=== PATIENT | male | born 1945 | race Caucasian/White ===

== ENCOUNTER 2019-02-02 15:27 | Observation (INO) | payer MEDICARE ==
[~2019-02-02] VITALS: Ht 175.3 cm; Wt 96.3 kg
--- NOTE | 2019-02-02 16:42 | REP ---
RIGHT LOWER EXTREMITY DUPLEX DOPPLER VENOUS ULTRASOUND: Real-time compression and duplex Doppler interrogation of the right lower extremity deep venous systems is performed. Right common femoral vein is fully compressible with transducer pressure and demonstrates no intraluminal thrombus. There is non-occlusive thrombus in the distal superficial femoral vein and in the popliteal vein. IMPRESSION: Non-occlusive thrombus in the distal right superficial femoral vein and adjacent popliteal vein. Electronically Signed by Ken Moore MD 02/02/2019 06:43 P
[2019-02-02] MEDS ORDERED: LISI10TA4 PO (17:32)
[2019-02-02] MEDS ORDERED: CHOL100029 PO (17:32)
[2019-02-02] MEDS ORDERED: COUM10TA PO (17:32)
[2019-02-02] MEDS ORDERED: FISH1000 PO (17:32)
[2019-02-02] MEDS ORDERED: ASPI81TA21 PO (17:32)
[2019-02-02 18:21] LABS: INR 3.04; PROTHROMBIN TIME 31.4 SECONDS (11.8-14.0)
[2019-02-02 18:22] LABS: PARTIAL THROMBOPLASTIN TIME 34.4 SECONDS (25.0-38.4)
[2019-02-02 18:24] LABS: HEMATOCRIT 38.4 % (42.0-52.0); HEMOGLOBIN 12.6 g/dl (13.5-17.5); MEAN CORPUSCULAR HEMOGLOBIN 33.1 pg (27.0-33.0); MEAN CORPUSCULAR HGB CONC 32.8 g/dl (32.0-36.5); MEAN CORPUSCULAR VOLUME 100.8 fl (80.0-96.0); PLATELET COUNT, AUTOMATED 125 10^3/uL (150-450); RED BLOOD COUNT 3.81 10^6/uL (4.30-6.10)
[2019-02-02 18:28] LABS: ALT/SGPT 29 U/L (12-78); BILIRUBIN,DIRECT < 0.1 MG/DL (0.0-0.2); BILIRUBIN,TOTAL 0.4 MG/DL (0.2-1.0); TOTAL PROTEIN 6.5 GM/DL (6.4-8.2)
[2019-02-02 19:09] LABS: ATYPICAL LYMPH 6 % (0-5); EOSINOPHILS 3 % (0-3); LYMPHOCYTES 64 % (16-44); METAMYELOCYTES 1 % (0-0); MONOCYTES 1 % (0-5); NEUTROPHILS 25 % (28-66); PLATELET ESTIMATE DECREASED (NORMAL)
[2019-02-02 19:10] LABS: SMUDGE CELLS 3+
[2019-02-02 19:11] LABS: WHITE BLOOD COUNT 40.7 10^3/uL (4.0-10.0)
[2019-02-02] MEDS ORDERED: MAALOX 30 ML SUSP *UDC PO PRN (21:45)
[2019-02-02] MEDS ORDERED: MOM 30ML SUSPENSION UDC PO PRN (21:45)
[2019-02-02] MEDS ORDERED: ACETAMINOPHEN TAB 650MG DOSE (2X325MG) PO PRN (21:45)
--- NOTE | 2019-02-02 21:51 | HPEPDOC ---
General Date of Admission 02/02/19 Date of Service: Feb 02, 2019 Primary Care Physician: EM BROWNLEE Chief Complaint The patient is a 73-year-old male admitted with a reason for visit of Leg Injury. Source: Patient Exam Limitations: No limitations Timing/Duration: Day(s) Severity: Mild Associated Symptoms: Other History of Present Illness 73 years old white male with past medical history of CLL, history of pulmonary embolus and DVT on Coumadin with therapeutic INR and a piece of furniture fell on his right lower leg on Thursday unit x-ray done at urgent care, which was essentially negative for any fractures, but he has bluish discoloration of his right foot and ankle. It felt warm and swelling and was told by his doctor was at [place] to come to emergency room to rule out DVT. Patient does not offer any complaints. As per patient, even the pain is gone except the bluish discoloration and bruising of his right foot and ankle. We will called in to admit patient for possible consultation for IVC filter placement in a.m. Home Medications Scheduled Aspirin (Aspir-Low) 81 Mg Tablet.dr, 81 MG PO DAILY, (Reported) with food Lisinopril (Lisinopril) 10 Mg Tablet, 10 MG PO DAILY, (Reported) [place]-3 Fatty Acids/Fish Oil (Fish Oil 1,000 mg Capsule) 1 Each Capsule, 2 CAP PO DAILY, (Reported) Vitamin D (Vitamin D3) 1,000 Unit Tablet, 3,000 TAB PO DAILY, (Reported) Warfarin Sodium (Coumadin) 10 Mg Tablet, 10 MG PO DAILY, (Reported) Allergies Coded Allergies: apixaban (Verified Allergy, Intermediate, HIVES, 02/02/19) rivaroxaban (Verified Allergy, Intermediate, HIVES, 02/02/19) Oijujzn-Oqo-Hls Reductase Inhibitor (Verified Adverse Reaction, Intermediate, MUSCLE WEAKNESS, 02/02/19) Past Medical History Medical History CLL, hypertension, bones on both hands Surgical History Skin grafts for rosario Family History Significant Family History: No pertinent family hx Social History * Smoker: Denies Alcohol: Denies Drugs: denies A-FIB/CHADSVASC A-FIB History Current/History of A-Fib/PAF?: No Review of Systems Constitutional: Denies: Chills, Fever, Malaise, Night Sweats, Weakness, Fatigue, Weight Loss, Lethargy, Other Eyes: Denies: Pain, Vision change, Conjunctivae inflammation, Eyelid inflammation, Redness, Other ENT: Denies: Head Aches, Ear Pain, Dysphagia, Sinus Congestion, Post Nasal Drip, Sore Throat, Epistaxis, Other Symptoms Skin: Denies: Rash, Lesions, Jaundice, Bruising, Itching, Dry, Breakdown, Nail Changes, Other Pulmonary: Denies: Dyspnea, Cough, Pleuritic Chest Pain, Other Symptoms Cardiovascular: Denies: Chest Pain, Palpitations, Orthopnea, Paroxysmal Noc. Dyspnea, Edema, Lt Headedness, Other Symptoms Gastrointestinal: Denies: Nausea, Vomiting, Abdominal Pain, Diarrhea, Constipation, Melena, Hematochezia, Other Symptoms Genitourinary: Denies: Dysuria, Frequency, Incontinence, Hematuria, Retention, Other Symptoms Hematologic: Denies: Bruising, Bleeding Excessively, Petecchia, Purpura, Enlarged Lymph Nodes, Other Hematologic Endocrine: Denies: Polydipsia, Polyphagia, Polyuria, Heat Intolerance, Cold Intolerance, Other Endocrine Sx Musculoskeletal: Reports: Other Symptoms (bluish discoloration of right foot an d ankle) Neurological: Denies: Weakness, Numbness, Incoordination, Change in speech, Confusion, Seizures, Other Symptoms Psych: Denies: Mood Normal, Anxiety, Depression, Memory Issues, Thoughts of Self Harm, Anger, Thoughts of Harming Other, Other Psych Physical Examination General Exam: Positive: Alert, Cooperative Eye Exam: Positive: PERRLA, Conjunctiva & lids normal ENT Exam: Positive: Mucous membr. moist/pink Neck Exam: Positive: Supple, JVD Chest Exam: Positive: Clear to auscultation, Normal air movement Heart Exam: Positive: Rate Normal, Normal S1, Normal S2 Abdomen Exam: Positive: Normal bowel sounds, Soft Extremity Exam: Positive: Other (mild swelling and bluish discoloration bruising of the right ankle and right foot) Skin Exam: Positive: Other skin issue Neuro Exam: Positive: Strength at 5/5 X4 ext, Cranial Nerves 3-12 NL Psych Exam: Positive: Mental status NL, Mood NL, Oriented x 3 Vital Signs Vital Signs Date Time Temp Pulse Resp B/P (MAP) Pulse Ox O2 Delivery O2 Flow Rate FiO2 02/02/19 20:45 73 180/97 (124) 96 02/02/19 15:28 99.7 16 Room Air Laboratory Data Labs 24H Laboratory Tests 2 02/02/19 16:45: Bedside Prothrombin Time INR 3.2, Prothrombin Time (MISC) 36.7H 02/02/19 16:50: White Blood Count 40.7*H, Red Blood Count 3.81L, Hemoglobin 12.6L, Hematocrit 38.4L, Mean Corpuscular Volume 100.8H, Mean Corpuscular Hemoglobin 33.1H, Mean Corpuscular Hemoglobin Concent 32.8, Red Cell Distribution Width 13.1, Platelet Count 125L, Lymphocytes # (Auto) , Monocytes # (Auto) , Nucleated Red Blood Cells % (auto) 0.1H, Neutrophils 25L, Lymphocytes (Manual) 64H, Monocytes (Manual) 1, Eosinophils (Manual) 3, Metamyelocytes 1H, Atypical Lymphocytes 6H, Smudge Cells 3+, Platelet Estimate DECREASED, Macrocytosis 1+, Prothrombin Time 31.4H, Prothromb Time International Ratio 3.04, Activated Partial Thromboplast Time 34.4, POC Glucose (Misc Panel) 94, POC Sodium (Misc Panel) 141, POC Potassium (Misc Panel) 4.2, POC Chloride (Misc Panel) 106, POC Total CO2 (Misc Panel) 27.0, POC Blood Urea Nitrogen (Misc Panel 28H, POC Ionized Calcium (Misc Panel) 5.0, POC Creatinine (Misc Panel) 1.6H, POC Hematocrit (Misc Panel) 38.0, Aspartate Amino Transf (AST/SGOT) 21, Alanine Aminotransferase (ALT/SGPT) 29, Alkaline Phosphatase 36L, Total Bilirubin 0.4, Direct Bilirubin < 0.1, Total Protein 6.5, Albumin 4.0, Albumin/Globulin Ratio 1.60 02/02/19 20:10: CBC/BMP Laboratory Tests 02/02/19 16:50 Red Blood Count 3.81 L, Mean Corpuscular Volume 100.8 H, Mean Corpuscular Hemoglobin 33.1 H, Mean Corpuscular Hemoglobin Concent 32.8, Red Cell Distribution Width 13.1, Lymphocytes # (Auto) , Monocytes # (Auto) Assessment/Plan 73 years old white male with past medical history of CLL has a history of PE about 8-9 years ago and has been on Coumadin with therapeutic range. He unfortunately had an accident and sustained bruising of his right foot and ankle on Thursday, was told by his doctor to come to ED to rule out DVT. Venous Dopplers of his right lower extreme. He was done which showed nonobstructing thrombosis of her right superficial femoral vein. Patient hasn't been admitted to the hospital for possible intervention radiology consultation in a.m. to consider placing an IVC filter as patient is therapeutic and INR and he still has a clot in the right superficial femoral vein, which indicates failure of anticoagulation and to further prevent any episode of pulmonary embolus. He might require IVC filter. Admit patient to [facility] His INR is 3.0. I will skip today's Coumadin dose and will continue his Coumadin 10 mg by mouth daily from tomorrow again. if Dr Macias agrees with the placement of IVC filter, then patient can be started on heparin drip and INR can be reversed with vitamin K for the procedure . I will continue all his home medication. In the meantime Pt is clinically stable Problems (1) DVT (deep venous thrombosis) Status: Acute Problem Text: 73 years old white male with past medical history of CLL has a history of PE about 8-9 years ago and has been on Coumadin with therapeutic ra nge. He unfortunately had an accident and sustained bruising of his right foot and ankle on Thursday, was told by his doctor to come to ED to rule out DVT. Venous Dopplers of his right lower extreme. He was done which showed nonobstructing thrombosis of her right superficial femoral vein. Patient hasn't been admitted to the hospital for possible intervention radiology consultation in a.m. to consider placing an IVC filter as patient is therapeutic and INR and he still has a clot in the right superficial femoral vein, which indicates failure of anticoagulation and to further prevent any episode of pulmonary embolus. He might require IVC filter. Admit patient to [facility] floor His INR is 3.0. I will skip today's Coumadin dose and will continue his Coumadin 10 mg by mouth daily from tomorrow again. if Dr Macias agrees with the placement of IVC filter, then patient can be started on heparin drip and INR can be reversed with vitamin K for the procedure . I will continue all his home medication. In the meantime Pt is clinically stable (2) CLL (chronic lymphocytic leukemia) Status: Chronic Problem Text: Patient follow-ups with this oncologist, Dr. 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, so could not connect with him for further recommendations Patient will continue treatment with this oncologist as an outpatient Plan / VTE VTE Prophylaxis Ordered?: Yes NAVJOT HARTMAN MD Feb 02, 2019 21:51
[2019-02-02 23:17] VITALS: BP 157/86
[2019-02-02] MEDS: DOCUSATE SODIUM 100 MG CAP PO SCH (23:41)
[2019-02-03 06:00] VITALS: BP 149/83
[2019-02-03 06:25] LABS: INR 3.1; PROTHROMBIN TIME 31.9 SECONDS (11.8-14.0)
[2019-02-03] MEDS: ASPIRIN 81 MG ENTERIC TAB PO SCH (08:13)
[2019-02-03] MEDS: DOCUSATE SODIUM 100 MG CAP PO SCH ×2 (08:13→22:25)
[2019-02-03] MEDS: LISINOPRIL 10 MG TAB PO SCH (08:17)
[2019-02-03 08:36] LABS: HEMATOCRIT 38.6 % (42.0-52.0); HEMOGLOBIN 12.7 g/dl (13.5-17.5); MEAN CORPUSCULAR HEMOGLOBIN 32.9 pg (27.0-33.0); MEAN CORPUSCULAR HGB CONC 32.9 g/dl (32.0-36.5); PLATELET COUNT, AUTOMATED 118 10^3/uL (150-450); RED BLOOD COUNT 3.86 10^6/uL (4.30-6.10)
[2019-02-03 08:37] LABS: BLOOD UREA NITROGEN 21 MG/DL (7-18); CALCIUM LEVEL 8.9 MG/DL (8.8-10.2); CARBON DIOXIDE LEVEL 28 MEQ/L (21-32); CHLORIDE LEVEL 110 MEQ/L (98-107); CREATININE FOR GFR 1.21 MG/DL (0.70-1.30); GLOMERULAR FILTRATION RATE > 60.0 (>42); GLUCOSE, FASTING 101 MG/DL (70-100); POTASSIUM SERUM 4.8 MEQ/L (3.5-5.1); SODIUM LEVEL 143 MEQ/L (136-145)
[2019-02-03 08:39] LABS: WHITE BLOOD COUNT 39.3 10^3/uL (4.0-10.0)
[2019-02-03] MEDS ORDERED: PREVNAR 13 VACCINE SYRINGE (CPT CODE:90670) IM ONE (09:00)
[2019-02-03 14:00] VITALS: BP 128/69
[2019-02-03] MEDS ORDERED: WARFARIN SOD 5 MG TAB PO SCH (17:00)
--- NOTE | 2019-02-03 17:33 | IPNPDOC ---
Date Seen The patient was seen on 02/03/19. Progress Note 73 y/o M with past medical history of CLL, history of pulmonary embolus and DVT on Coumadin with therapeutic INR was admitted with right lower extremity DVT. Pt was supposed to be evaluated by IR for IVC filter placement today. Pt was seen and examined at bedside. Pt c/o mild right lower extremity pain around skin abrasion site. NO new complaint. OBJECTIVE PHYSICAL EXAMINATION: VITAL SIGNS: Please see below. GENERAL:comfortable, not in acute distress. HEENT: oral mucosa moist CARDIOVASCULAR: regular rate and rhythm, S1/S2 positive RESPIRATORY: clear to auscultation, no added sounds ABDOMINAL: soft, non tender, normal bowel sound EXTREMITIES: skin abrasion over right lower vigil, NEUROLOGICAL: No focal deficit PSYCHOLOGICAL: mood normal Labs and imaging studies reviewed. ASSESSMENT AND PLAN Right lower extremity DVT while on therapeutic anticoagulation will hold coumadin in view of supratherapeutic INR will consider vitamin K if INR is still elevated and heparin gtt during perioperative period for IVC filter placement. will f/u with IR for IVC placement. Obesity supportive care CLL stable o/p oncology f/u as scheduled HTN controlled with home meds. VS, I&O, 24H, Fishbone Vital Signs/I&O Vital Signs Date Time Temp Pulse Resp B/P (MAP) Pulse Ox O2 Delivery O2 Flow Rate FiO2 02/03/19 14:00 98.5 73 18 128/69 (88) 95 02/02/19 15:28 Room Air I&O- Last 24 Hours up to 6 AM 02/03/19 06:00 Intake Total 300 ml Output Total 250 ml Balance 50 ml Laboratory Data 24H LABS Laboratory Tests 2 02/02/19 20:10: 02/03/19 05:32: Nucleated Red Blood Cells % (auto) 0.0, Anion Gap 5L, Glomerular Filtration Rate > 60.0, Blood Urea Nitrogen 21H, Creatinine 1.21, Sodium Level 143, Potassium Level 4.8, Chloride Level 110H, Carbon Dioxide Level 28, Calcium Level 8.9 02/03/19 05:36: Prothrombin Time 31.9H, Prothromb Time International Ratio 3.10 CBC/BMP Laboratory Tests 02/03/19 05:32 Red Blood Count 3.86 L, Mean Corpuscular Volume 100.0 H, Mean Corpuscular Hemoglobin 32.9, Mean Corpuscular Hemoglobin Concent 32.9, Red Cell Distribution Width 12.9, Calcium Level 8.9 POLINA BATISTA MD Feb 03, 2019 17:33
[2019-02-03 22:00] VITALS: BP 133/72
[2019-02-03] MEDS: zolPIDEM TARTRATE 5 MG TAB PO PRN (22:24)
[2019-02-04 06:00] VITALS: BP 140/84
[2019-02-04 06:15] LABS: HEMATOCRIT 40.9 % (42.0-52.0); HEMOGLOBIN 13.5 g/dl (13.5-17.5); MEAN CORPUSCULAR HEMOGLOBIN 32.8 pg (27.0-33.0); MEAN CORPUSCULAR VOLUME 99.5 fl (80.0-96.0); PLATELET COUNT, AUTOMATED 136 10^3/uL (150-450); RED BLOOD COUNT 4.11 10^6/uL (4.30-6.10)
[2019-02-04 06:21] LABS: WHITE BLOOD COUNT 42.5 10^3/uL (4.0-10.0)
[2019-02-04 06:29] LABS: INR 2.78; PROTHROMBIN TIME 29.2 SECONDS (11.8-14.0)
[2019-02-04 06:36] LABS: BLOOD UREA NITROGEN 21 MG/DL (7-18); CREATININE FOR GFR 1.15 MG/DL (0.70-1.30); GLUCOSE, FASTING 96 MG/DL (70-100)
[2019-02-04 06:37] LABS: CARBON DIOXIDE LEVEL 28 MEQ/L (21-32); CHLORIDE LEVEL 109 MEQ/L (98-107); GLOMERULAR FILTRATION RATE > 60.0 (>42); POTASSIUM SERUM 4.8 MEQ/L (3.5-5.1); SODIUM LEVEL 141 MEQ/L (136-145)
[2019-02-04] MEDS: DOCUSATE SODIUM 100 MG CAP PO SCH ×2 (09:31→20:12)
[2019-02-04] MEDS: ASPIRIN 81 MG ENTERIC TAB PO SCH (09:31)
[2019-02-04] MEDS: LISINOPRIL 10 MG TAB PO SCH (09:33)
[2019-02-04 14:00] VITALS: BP 152/79
[2019-02-04] MEDS ORDERED: diphenhydrAMINE INJ 50MG/ML VIAL (J1200) As Ordered ONE (15:09)
[2019-02-04] MEDS ORDERED: fentaNYL 100 MCG/2 ML INJECTION (J3010) As Ordered ONE (15:10)
[2019-02-04] MEDS ORDERED: ISOVUE-300 61% 50ML VIAL (Q9967) As Ordered ONE (15:10)
[2019-02-04] MEDS ORDERED: MIDAZOLAM INJ 2 MG/2 ML VIAL (J2250) As Ordered ONE (15:10)
[2019-02-04] MEDS ORDERED: LIDOCAINE 1% MDV 20ML VIAL As Ordered ONE (15:10)
--- NOTE | 2019-02-04 15:40 | IRMSE ---
[facility] IR Moderate Sedation Eval. Date and Time Date: Feb 04, 2019 Time: 15:40 ASA Classification ASA Classification: II-Mild systemic disease Mallampati Score: I NPO: Yes Obstructive Sleep Apnea: Yes Interval Plan: moderate sedation FANTASMA FREGOSO MD Feb 04, 2019 15:40
--- NOTE | 2019-02-04 16:52 | REP ---
IR IVC filter placement. IR Venogram. IR moderate sedation. Ultrasound of the right groin. Clinical indication : Failed anticoagulation with new deep vein thrombosis on Coumadin. History of bilateral pulmonary emboli. Physician: Dr. Kennedy. Procedure: The patient was advised of the benefits, risks and alternatives of the procedure and informed consent was obtained. The time-out was performed with verification of the patient's name, MRN, site of procedure and type of procedure to be performed. The patient was positioned in the supine position on the angiographic table. The site was prepped and draped in the usual sterile fashion. Moderate sedation was performed by the physician including the presence of an independent trained observer that assisted in monitoring the patient's level of consciousness and physiologic status. Following administration of Fentanyl and Versed , the physician spent 45 minutes of continuous face to face time with the patient. Preliminary ultrasound of the right groin was performed and demonstrates a patent right common femoral vein which is easily compressible. The vein was accessed using a micropuncture kit, under ultrasound guidance. An 035 wire was placed into the peripheral inferior vena cava. An inferior vena cava venogram was then performed demonstrating a normal caliber inferior vena cava without filling defects and the renal vein inflow at the L1 level. No caval anomalies were identified. The wire was then passed into the inferior vena cava and the filter sheath advanced over the wire. A filter was then advanced through the sheath and positioned within the infrarenal inferior vena cava. The filter was then deployed in the usual fashion. Positioning was confirmed fluoroscopically. The sheath was then removed and hemostasis obtained with manual compression. The patient tolerated the procedure well and was returned to PRU in stable condition. EBL: Less than 5 ml. Complications: None. Conclusion: 1. Normal inferior vena cava venogram. 2. Successful deployment of a cook select filter in the infrarenal inferior vena cava. 3. Patient to return for filter retrieval when no longer needed. Follow up in IR clinic in 6 months. Thank you this referral. Electronically Signed by Valentina Kennedy MD 02/04/2019 04:50 P
--- NOTE | 2019-02-04 17:04 | IPNPDOC ---
Date Seen The patient was seen on 02/04/19. Progress Note SUBJECTIVE: 73-year-old male with past medical history of CLL, coagulation factor disorder (uncommon, followed at [facility]), DVT/PE (on Coumadin), hypertension, admitted for new right lower extremity DVT despite therapeutic INR on Coumadin. 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 Patient was admitted for IR evaluation regarding placement of IVC filter; patient is currently asymptomatic, reports right foot pain due to injury, denies right lower extremity numbness, tingling or weakness. Patient denies any shortness of breath, chest pain, nausea, vomiting, abdominal pain, diarrhea or constipation. 10 point review of system was negative except for above. OBJECTIVE PHYSICAL EXAMINATION: VITAL SIGNS: Please see below. GENERAL: No distress HEENT: Normocephalic, atraumatic, moist mucous membranes NECK: Supple CARDIOVASCULAR EXAMINATION: S1, S2, no murmurs RESPIRATORY EXAMINATION: Clear to auscultation, no wheezing ABDOMINAL EXAMINATION: Soft, nontender, nondistended, positive bowel sounds EXTREMITIES: Range of motion intact, bilateral lower extremities warm to touch, pulses intact. SKIN: No rash NEUROLOGICAL EXAMINATION: Alert and oriented 3, no focal deficits PSYCHIATRIC EXAMINATION: Calm and cooperative LABORATORY DATA, IMAGING STUDIES, MICROBIOLOGY: Please see below. 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 PROBLEMS: 1. Right Lower extremity DVT]: . History of malignancy, hypercoagulability, stasis, and injury. Difficult to call failure of Coumadin therapy due to recent travel and injury. Will switch to Lovenox. IR eval regarding IVC filter placement pending. 2. CLL: . Never required treatment. 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 3. Hypercoagulability: . Reports rare coagulation factor disorder, has blood work sent to [facility]. Continue Lovenox. 4. Hypertension. Continue home meds. VS, I&O, 24H, Fishbone Vital Signs/I&O Vital Signs Date Time Temp Pulse Resp B/P (MAP) Pulse Ox O2 Delivery O2 Flow Rate FiO2 02/04/19 16:30 76 16 99 02/04/19 16:25 2 02/04/19 15:05 98.0 02/04/19 14:00 152/79 (103) 02/02/19 15:28 Room Air I&O- Last 24 Hours up to 6 AM 02/04/19 05:59 Intake Total 1730 ml Output Total 900 ml Balance 830 ml Laboratory Data 24H LABS Laboratory Tests 2 02/04/19 05:16: Nucleated Red Blood Cells % (auto) 0.0, Prothrombin Time 29.2H, Prothromb Time International Ratio 2.78, Anion Gap 4L, Glomerular Filtration Rate > 60.0, Blood Urea Nitrogen 21H, Creatinine 1.15, Sodium Level 141, Potassium Level 4.8, Chloride Level 109H, Carbon Dioxide Level 28, Calcium Level 9.0 CBC/BMP Laboratory Tests 02/04/19 05:16 Red Blood Count 4.11 L, Mean Corpuscular Volume 99.5 H, Mean Corpuscular Hemoglobin 32.8, Mean Corpuscular Hemoglobin Concent 33.0, Red Cell Distribution Width 12.9, Calcium Level 9.0 JENNI LORENZO MD Feb 04, 2019 17:04
[2019-02-04 18:00] VITALS: BP 128/77
[2019-02-04] MEDS ORDERED: ENOXAPARIN 100MG/1ML SYRINGE (J1650) SC SCH (18:00)
[2019-02-04] MEDS: zolPIDEM TARTRATE 5 MG TAB PO PRN (20:12)
[2019-02-04 22:00] VITALS: BP 137/72
[2019-02-05 06:00] VITALS: BP 152/74
[2019-02-05 06:04] LABS: HEMATOCRIT 42.1 % (42.0-52.0); HEMOGLOBIN 13.8 g/dl (13.5-17.5); MEAN CORPUSCULAR HEMOGLOBIN 32.8 pg (27.0-33.0); MEAN CORPUSCULAR HGB CONC 32.8 g/dl (32.0-36.5); PLATELET COUNT, AUTOMATED 144 10^3/uL (150-450); RED BLOOD COUNT 4.21 10^6/uL (4.30-6.10)
[2019-02-05 06:05] LABS: WHITE BLOOD COUNT 47.1 10^3/uL (4.0-10.0)
[2019-02-05 06:13] LABS: INR 2.14; PROTHROMBIN TIME 23.7 SECONDS (11.8-14.0)
[2019-02-05 06:34] LABS: CALCIUM LEVEL 8.6 MG/DL (8.8-10.2); CREATININE FOR GFR 1.31 MG/DL (0.70-1.30); GLOMERULAR FILTRATION RATE 56.9 (>42); POTASSIUM SERUM 4.5 MEQ/L (3.5-5.1)
[2019-02-05] MEDS ORDERED: ENOXAPARIN 100MG/1ML SYRINGE (J1650) SC SCH (08:00)
[2019-02-05] MEDS: ASPIRIN 81 MG ENTERIC TAB PO SCH (08:12)
[2019-02-05] MEDS: DOCUSATE SODIUM 100 MG CAP PO SCH (08:12)
[2019-02-05 08:13] VITALS: BP 152/74
[2019-02-05] MEDS: LISINOPRIL 10 MG TAB PO SCH (08:13)
[2019-02-05] MEDS ORDERED: LOVE0.8I SC (12:41)
--- NOTE | 2019-02-05 17:09 | DS.PDOC ---
Discharge Summary General Date of Admission Feb 02, 2019 at 15:28 Date of Discharge 02/05/2019 Attending Physician: JENNI LORENZO MD Discharge Summary PROCEDURES PERFORMED DURING STAY: IVC filter. ADMITTING DIAGNOSES: 1. Right lower extremity DVT. DISCHARGE DIAGNOSES: 1. Right lower extremity DVT. COMPLICATIONS/CHIEF COMPLAINT: DVT. HISTORY OF PRESENT ILLNESS: 73-year-old male with past medical history of DVT/PE, CLL, hypertension, rare hypercoagulable disorder who was admitted for new onset right lower extremity DVT. He recently drove from [place] and injured his right foot by dropping furniture on it and upon presentation to the ED, was found to have right superficial femoral DVT. 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 He was taking Coumadin outpatient, therapeutic INR, denies missing medication. An IVC filter was placed by IR yesterday, patient hemodynamically stable, patient wished to go home. Patient will be started on Lovenox and advised follow-up with hematology regarding further anticoagulation and the best agent for it. Patient has used Lovenox in the past, reports adequate knowledge on how to administer, has no questions at this time. HOSPITAL COURSE: As above. DISCHARGE MEDICATIONS: Please see below. ALLERGIES: Please see below. PHYSICAL EXAMINATION: VITAL SIGNS: Please see below. GENERAL: No distress HEENT: Normocephalic, atraumatic, moist mucous membranes NECK: Supple CARDIOVASCULAR EXAMINATION: S1, S2, no murmurs RESPIRATORY EXAMINATION: Clear to auscultation, no wheezing ABDOMINAL EXAMINATION: Soft, nontender, nondistended, positive bowel sounds EXTREMITIES: Right lower extremity bruising with slight edema and ecchymosis SKIN: No rash NEUROLOGICAL EXAMINATION: Alert and oriented 3, no focal deficits PSYCHIATRIC EXAMINATION: Calm and cooperative LABORATORY DATA: Please see below. IMAGING: Lower extremity Doppler with right lower extremity DVT PROGNOSIS: Good ACTIVITY: As tolerated. DIET: Cardiac DISCHARGE PLAN: Patient is to follow with hematology oncology and PCP within 1-2 weeks DISPOSITION: 01 Home, Self-Care. DISCHARGE INSTRUCTIONS: 1. As above. DISCHARGE CONDITION: Stable. TIME SPENT ON DISCHARGE: Greater than 25 minutes. Vital Signs/I&Os Vital Signs Date Time Temp Pulse Resp B/P (MAP) Pulse Ox O2 Delivery O2 Flow Rate FiO2 02/05/19 08:13 152/74 02/05/19 06:00 96.7 74 16 97 02/04/19 16:25 2 02/02/19 15:28 Room Air I&O- Last 24 Hours up to 6 AM 02/05/19 05:59 Intake Total 1790 ml Output Total 2100 ml Balance -310 ml Laboratory Data Labs 24H Laboratory Tests 2 02/05/19 05:20: Nucleated Red Blood Cells % (auto) 0.0, Prothrombin Time 23.7H, Prothromb Time International Ratio 2.14, Anion Gap 7L, Glomerular Filtration Rate 56.9, Blood Urea Nitrogen 24H, Creatinine 1.31H, Sodium Level 142, Potassium Level 4.5, Chloride Level 108H, Carbon Dioxide Level 27, Calcium Level 8.6L CBC/BMP Laboratory Tests 02/05/19 05:20 Red Blood Count 4.21 L, Mean Corpuscular Volume 100.0 H, Mean Corpuscular Hemoglobin 32.8, Mean Corpuscular Hemoglobin Concent 32.8, Red Cell Distribution Width 13.1, Calcium Level 8.6 L Discharge Medications Scheduled Aspirin (Aspir-Low) 81 Mg Tablet.dr, 81 MG PO DAILY, (Reported) with food Enoxaparin Sodium (Lovenox) 100 Mg/1 Ml Syringe, 100 MG SC Q12H Lisinopril (Lisinopril) 10 Mg Tablet, 10 MG PO DAILY, (Reported) [place]-3 Fatty Acids/Fish Oil (Fish Oil 1,000 mg Capsule) 1 Each Capsule, 2 CAP PO DAILY, (Reported) Vitamin D (Vitamin D3) 1,000 Unit Tablet, 3,000 TAB PO DAILY, (Reported) Allergies Coded Allergies: apixaban (Verified Allergy, Intermediate, HIVES, 02/02/19) rivaroxaban (Verified Allergy, Intermediate, HIVES, 02/02/19) Yaifnhe-Kmh-Izs Reductase Inhibitor (Verified Adverse Reaction, Intermediate, MUSCLE WEAKNESS, 02/02/19) JENNI LORENZO MD Feb 05, 2019 17:09
[2019-02-08 10:51] LABS: ANTI THROMBIN 3 ANTIGEN IMMUNO 88 % (72-124); ANTI THROMBIN 3 FUNCT ACTIVITY 110 % (75-135); CARDIOLIPIN IGA ANTIBODY <9 APL U/mL (0-11); CARDIOLIPIN IGG ANTIBODY <9 GPL U/mL (0-14); CARDIOLIPIN IGM ANTIBODY <9 MPL U/mL (0-12); PHOSPHOLIPIDS LEVEL 261 mg/dL (150-250); PROTEIN C FUNCTIONAL ACTIVITY 51 % (73-180); PROTEIN S FUNCTIONAL ACTIVITY 25 % (63-140)
[2019-02-08 11:22] LABS: DRVV SCREEN 72.6 SEC
[2019-02-08 11:48] LABS: PTT LUPUS TYPE ANTICOAG SCREEN 1.8 (0-1.2)
[2019-02-08 12:00] LABS: DRVV CONFIRM 58.5 SEC; LUPUS CONFIRM RATIO 1.6
[2019-02-08 12:21] LABS: NORMALIZED RATIO 1.13 (0.00-1.20)
== END 2019-02-05 14:40 | disposition home or self-care (01) ==
LOC: M ED 15:27 → M ED INP 15:28 → M MSPAV 23:12
PROVIDERS: ADMIT Internal Medicine; ATTEND Internal Medicine
DX: I82.411 Acute embolism and thrombosis of right femoral vein (principal); I10 Essential (primary) hypertension; G47.33 Obstructive sleep apnea (adult) (pediatric); Z86.711 Personal history of pulmonary embolism; Z79.82 Long term (current) use of aspirin; Z79.01 Long term (current) use of anticoagulants; Z88.8 Allergy status to other drugs, medicaments and biological substances
CPT/HCPCS: 36415; 37191; 80047; 80048; 80076; 81240; 81241; 84311; 85025; 85027; 85300; 85301; 85303; 85305; 85610; 85613; 85730; 86147; 90670; 93971; 96372; 99152; 99153; 99285; C1769; C1880; C1894; G0009; G0378; J1200; J1650; J2250; J3010; Q9967

== ENCOUNTER 2019-02-06 16:09 | Emergency (ER) | payer MEDICARE ==
[~2019-02-06] VITALS: Ht 175.3 cm; Wt 94.5 kg
[~2019-02-06 16:09] MED LIST: ASPI81TA21 PO; CHOL100029 PO; COUM10TA PO; FISH1000 PO; LISI10TA4 PO; LOVE0.8I SC
[2019-02-06] MEDS ORDERED: BACITRACIN OINT 30GM TOP ONE (17:15)
[2019-02-06 18:11] VITALS: BP 132/74
--- NOTE | 2019-02-07 08:09 | REP ---
Right tib-fib series: Four views. History: Pain after trauma. Findings: Four views of the right tibia and fibula demonstrate vascular calcification in the calf soft tissues and vascular calcification across the ankle. There is mild Achilles calcaneal spurring. No tibial or fibular fracture is appreciated. Impression: No fracture noted. Electronically Signed by Contreras Roth MD 02/07/2019 09:43 A
== END 2019-02-06 18:12 | disposition home or self-care (01) ==
LOC: M ED 16:09
DX: S80.11XA Contusion of right lower leg, initial encounter (principal); S80.811A Abrasion, right lower leg, initial encounter; S80.821A Blister (nonthermal), right lower leg, initial encounter; X58.XXXA Exposure to other specified factors, initial encounter; Y92.89 Other specified places as the place of occurrence of the external cause; Z88.8 Allergy status to other drugs, medicaments and biological substances; Z79.899 Other long term (current) drug therapy; Z79.82 Long term (current) use of aspirin; Z79.01 Long term (current) use of anticoagulants

== ENCOUNTER 2019-02-08 21:41 | Inpatient (IN) | payer MEDICARE ==
[~2019-02-08] VITALS: Ht 175.3 cm; Wt 92.1 kg
[2019-02-08 22:28] LABS: HEMATOCRIT 36.7 % (42.0-52.0); MEAN CORPUSCULAR HEMOGLOBIN 33.1 pg (27.0-33.0); MEAN CORPUSCULAR HGB CONC 32.7 g/dl (32.0-36.5); MEAN CORPUSCULAR VOLUME 101.4 fl (80.0-96.0); PLATELET COUNT, AUTOMATED 154 10^3/uL (150-450); RED BLOOD COUNT 3.62 10^6/uL (4.30-6.10)
[2019-02-08 22:33] LABS: WHITE BLOOD COUNT 40.8 10^3/uL (4.0-10.0)
[2019-02-08 22:43] LABS: ATYPICAL LYMPH 4 % (0-5); LYMPHOCYTES 77 % (16-44); MONOCYTES 2 % (0-5); NEUTROPHILS 17 % (28-66)
[2019-02-08 22:44] LABS: INR 1.19; PROTHROMBIN TIME 14.8 SECONDS (11.8-14.0); SMUDGE CELLS 2+
[2019-02-08 22:45] LABS: PARTIAL THROMBOPLASTIN TIME 29.2 SECONDS (25.0-38.4); PLATELET ESTIMATE NORMAL (NORMAL)
[2019-02-08 23:10] LABS: BLOOD UREA NITROGEN 28 MG/DL (7-18); CALCIUM LEVEL 8.3 MG/DL (8.8-10.2); CARBON DIOXIDE LEVEL 28 MEQ/L (21-32); CHLORIDE LEVEL 108 MEQ/L (98-107); CK-MB VALUE MASS < 1.0 NG/ML (<3.6); CPK CREATINE PHOSPHOKINASE 79 U/L (39-308); CREATININE FOR GFR 1.16 MG/DL (0.70-1.30); FREE T4 1.14 NG/DL (0.76-1.46); GLOMERULAR FILTRATION RATE > 60.0 (>42); GLUCOSE, FASTING 149 MG/DL (70-100); MAGNESIUM LEVEL 2.1 MG/DL (1.8-2.4); MB/CK RELATIVE INDEX 1.27 (< OR =4); POTASSIUM SERUM 4.5 MEQ/L (3.5-5.1); SODIUM LEVEL 139 MEQ/L (136-145); TROPONIN I < 0.02 NG/ML (< 0.10)
--- NOTE | 2019-02-08 23:17 | REPVR ---
PROCEDURE INFORMATION: Exam: CT Head Without Contrast Exam date and time: 02/08/2019 10:39 PM Clinical history: 73 years old, male; Injury or trauma; Fall; Initial encounter; Blunt trauma (contusions or hematomas); Additional info: Syncope TECHNIQUE: Imaging protocol: Computed tomography of the head without contrast. Radiation optimization: All CT scans at this facility use at least one of these dose optimization techniques: automated exposure control; mA and/or kV adjustment per patient size (includes targeted exams where dose is matched to clinical indication); or iterative reconstruction. COMPARISON: No relevant prior studies available. FINDINGS: Brain: No intracranial mass, focal mass effect or midline shift. No acute intracranial hemorrhage. Mild decreased attenuation in periventricular/centrum semiovale white matter. No focal effacement of cortical sulci to indicate acute cortical infarct. Ventricles: Prominent ventricles and CSF spaces suggest parenchymal volume loss. Bones/joints: No calvarial fracture or destructive process. Sinuses: Visualized paranasal sinuses are unremarkable. Mastoid air cells: Mastoid air cells are normally aerated. Orbits: Visualized globes and orbits are unremarkable. Soft tissues: No focal extracranial soft tissue swelling. IMPRESSION: 1. No acute intracranial abnormality. 2. Atrophy and chronic microangiopathic change in supratentorial white matter. Electronically signed by: Joel Sanchez On 02/08/2019 23:17:07 PM
[2019-02-09] VITALS (7 sets, daily range): BP systolic 138–173; BP diastolic 62–83
[2019-02-09] MEDS ORDERED: CHOL50002 PO (00:11)
[2019-02-09] MEDS ORDERED: ENOX100I3 SC (00:11)
[2019-02-09] MEDS ORDERED: WARF-22 PO (00:11)
[2019-02-09] MEDS ORDERED: SLF 3 ML SYR IV PRN (05:00)
--- NOTE | 2019-02-09 05:34 | ECGEPIP ---
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
[2019-02-09] MEDS: SLF 3 ML SYR IV SCH ×3 (05:43→21:49)
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
[2019-02-09] MEDS ORDERED: ENOXAPARIN 100MG/1ML SYRINGE (J1650) SC SCH (08:00)
--- NOTE | 2019-02-09 08:05 | REP ---
Portable chest x-ray: Single view. History: Syncope. Findings: Monitoring electrodes are seen. The lungs are exposed at a relatively low level of inspiration. No infiltrate is seen. Pleural angles are sharp. Cardiomediastinal silhouette is unremarkable. Impression: Relatively low level of inspiration. Otherwise no acute disease. Electronically Signed by Contreras Roth MD 02/09/2019 07:56 A
[2019-02-09] MEDS: ASPIRIN 81 MG ENTERIC TAB PO SCH ×2 (08:59→21:49)
[2019-02-09] MEDS: LISINOPRIL 10 MG TAB PO SCH (09:00)
[2019-02-09] MEDS ORDERED: HEPARIN DRIP 25,000 UNITS in IV 1 EA IV SCH (13:12)
[2019-02-09] MEDS ORDERED: HEPARIN SOD (PORCINE) 5000 UNITS/ML VIAL IV PRN (13:15)
[2019-02-09] MEDS ORDERED: HEPARIN SOD (PORCINE) 5000 UNITS/ML VIAL IV ONE ×2 (13:15→13:45)
[2019-02-09] MEDS: PERCOCET 5MG/325MG TAB PO PRN ×2 (13:31→21:51)
[2019-02-09] MEDS: HEPARIN DRIP 25,000 UNITS in IV 1 EA IV SCH (15:30)
[2019-02-09 15:44] LABS: MAGNESIUM LEVEL 2.2 MG/DL (1.8-2.4); PHOSPHORUS LEVEL 2.4 MG/DL (2.5-4.9)
--- NOTE | 2019-02-09 16:09 | REP ---
REASON FOR EXAM: Recent confusion. PRIORS: None. Mild echogenic material is seen along the carotid arterial [place]. Some of this echogenic material casts an acoustic shadow consistent with calcific deposition. RIGHT LEFT CCA systolic 113.0 cm/s 108.0 cm/s CCA diastolic 11.2 cm/s 21.4 cm/s ICA systolic 61.1 cm/s 83.2 cm/s ICA diastolic 17.6 cm/s 24.9 cm/s ICA/CCA ratio 0.53 0.77 Analysis of the spectral wave form shows no evidence of significant spectral broadening. There is antegrade flow seen in both vertebral arteries. On imaging the carotid arteries, the technologist noted neck masses, most having peripheral low echoes and central increased echoes with a reniform shape consistent with lymph nodes. The technologist also scanned what appears to be a thyroid gland mass measuring 2 cm. IMPRESSION:1. According to the NASCET consensus criteria there is less than 50% stenosis of the internal carotid artery bilaterally. 2. Lymph nodes and possible thyroid mass as described above. Thyroid ultrasonography is recommended for further evaluation. Electronically Signed by Silver Galan DO 02/10/2019 10:44 A
[2019-02-09] MEDS: WARFARIN SOD 5 MG TAB PO SCH (16:27)
--- NOTE | 2019-02-09 21:09 | REPVR ---
PROCEDURE INFORMATION: Exam: MR Head Without Contrast Exam date and time: 02/09/2019 8:34 PM Clinical history: 73 years old, male; Weakness, extremity; Bilateral; Patient HX: PT has had recent frequent episodes with loss of consciousness, severe weakness, occasional confusion; Additional info: AMS TECHNIQUE: Imaging protocol: MR of the head without contrast. COMPARISON: CT Head without contrast 02/08/2019 10:37 PM FINDINGS: Brain: Nonspecific T2/FLAIR hyperintensities of the periventricular and deep subcortical white matter, most likely secondary to chronic small vessel ischemic change. No intracranial hemorrhage or extra-axial fluid collection. No evidence of mass effect or midline shift. No restricted diffusion to suggest acute infarct. Ventricles: Prominence of the ventricles and sulci, likely attributed to parenchymal volume loss. Bones/joints: Unremarkable. Soft tissues: Unremarkable. Sinuses: Unremarkable. Mastoid air cells: No mastoid effusion. Orbits: Unremarkable. IMPRESSION: 1. No acute intracranial pathology. 2. Other chronic findings, as above. Electronically signed by: Vinny Negrete On 02/09/2019 21:09:04 PM
--- NOTE | 2019-02-09 21:10 | REPVR ---
PROCEDURE INFORMATION: Exam: MR Angiogram Head Without Contrast, Arteries Exam date and time: 02/09/2019 8:35 PM Clinical history: 73 years old, male; Syncope and collapse and weakness; Patient HX: PT has had recent frequent episodes with loss of consciousness, severe weakness, occasional confusion; Additional info: Confusion/ams w/ h/o cll TECHNIQUE: Imaging protocol: MR angiogram head without contrast. Exam focused on the arteries. 3D rendering: MIP reconstructed images were created and reviewed. COMPARISON: CT Head without contrast 02/08/2019 10:37 PM FINDINGS: Right internal carotid artery: Unremarkable. Intracranial segment is patent with no significant stenosis. No aneurysm. Right anterior cerebral artery: Unremarkable. No occlusion or significant stenosis. No aneurysm. Right middle cerebral artery: Unremarkable. No occlusion or significant stenosis. No aneurysm. Right posterior cerebral artery: Unremarkable. No occlusion or significant stenosis. No aneurysm. 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 Left internal carotid artery: Unremarkable. Intracranial segment is patent with no significant stenosis. No aneurysm. Left anterior cerebral artery: Unremarkable. No occlusion or significant stenosis. No aneurysm. Left middle cerebral artery: Unremarkable. No occlusion or significant stenosis. No aneurysm. Left posterior cerebral artery: Patent and type left posterior cerebral artery. No aneurysm. Left vertebral artery: Unremarkable. No occlusion or significant stenosis. No aneurysm. Basilar artery: Unremarkable. No occlusion or significant stenosis. No aneurysm. IMPRESSION: 1. No MRA evidence of intracranial arterial occlusion. 2. 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 Electronically signed by: Vinny Negrete On 02/09/2019 21:10:34 PM
[2019-02-10] VITALS: BP 149/75
[2019-02-10 03:37] LABS: HEMATOCRIT 35.7 % (42.0-52.0); HEMOGLOBIN 11.7 g/dl (13.5-17.5); MEAN CORPUSCULAR HEMOGLOBIN 33.1 pg (27.0-33.0); MEAN CORPUSCULAR HGB CONC 32.8 g/dl (32.0-36.5); MEAN CORPUSCULAR VOLUME 101.1 fl (80.0-96.0); PLATELET COUNT, AUTOMATED 159 10^3/uL (150-450); RED BLOOD COUNT 3.53 10^6/uL (4.30-6.10)
[2019-02-10 03:42] LABS: WHITE BLOOD COUNT 44.9 10^3/uL (4.0-10.0)
[2019-02-10 04:00] VITALS: BP_SYST 138; BP_SYST 151; BP_SYST 164; BP_DIAS 65; BP_DIAS 70; BP_DIAS 79
[2019-02-10 04:25] LABS: ALBUMIN 3.1 GM/DL (3.2-5.2); ALT/SGPT 32 U/L (12-78); BILIRUBIN,TOTAL 0.4 MG/DL (0.2-1.0); BLOOD UREA NITROGEN 23 MG/DL (7-18); CALCIUM LEVEL 8.8 MG/DL (8.8-10.2); CARBON DIOXIDE LEVEL 27 MEQ/L (21-32); CHLORIDE LEVEL 106 MEQ/L (98-107); CREATININE FOR GFR 1.15 MG/DL (0.70-1.30); GLOMERULAR FILTRATION RATE > 60.0 (>42); GLUCOSE, FASTING 146 MG/DL (70-100); POTASSIUM SERUM 4.4 MEQ/L (3.5-5.1); SODIUM LEVEL 139 MEQ/L (136-145); TOTAL PROTEIN 6.3 GM/DL (6.4-8.2)
[2019-02-10] MEDS: SLF 3 ML SYR IV SCH ×3 (05:38→21:38)
[2019-02-10 08:00] VITALS: BP 162/88
[2019-02-10] MEDS ORDERED: FLUBLOK(EGG FREE)(QUAD)INFLUENZA VACC 0.5ML SYRINGE (90682)18YRS&OLDER IM ONE (09:00)
[2019-02-10] MEDS: ASPIRIN 81 MG ENTERIC TAB PO SCH ×2 (09:08→20:25)
[2019-02-10] MEDS: LISINOPRIL 10 MG TAB PO SCH (09:08)
[2019-02-10] MEDS: HEPARIN DRIP 25,000 UNITS in IV 1 EA IV SCH (09:12)
[2019-02-10] MEDS: NS 1,000 ML IV SCH (10:11)
[2019-02-10] MEDS: PERCOCET 5MG/325MG TAB PO PRN (11:29)
[2019-02-10 12:00] VITALS: BP_SYST 160; BP_SYST 168; BP_DIAS 78; BP_DIAS 84; BP_DIAS 88
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
[2019-02-10 16:00] VITALS: BP 158/88
[2019-02-10] MEDS: WARFARIN SOD 5 MG TAB PO SCH (16:26)
[2019-02-10 20:00] VITALS: BP 146/86
[2019-02-10] MEDS: DOCUSATE SODIUM 100 MG CAP PO SCH (20:26)
[2019-02-11] VITALS: BP 137/78
[2019-02-11] MEDS: NS 1,000 ML IV SCH (00:19)
[2019-02-11] MEDS: PERCOCET 5MG/325MG TAB PO PRN (00:44)
[2019-02-11 04:00] VITALS: BP 157/85
[2019-02-11] MEDS: HEPARIN DRIP 25,000 UNITS in IV 1 EA IV SCH (04:33)
[2019-02-11] MEDS ORDERED: ACETAMINOPHEN TAB 650MG DOSE (2X325MG) PO ONE (05:00)
[2019-02-11] MEDS: SLF 3 ML SYR IV SCH ×5 (05:03→20:42)
[2019-02-11 05:43] LABS: HEMATOCRIT 36.7 % (42.0-52.0); HEMOGLOBIN 11.7 g/dl (13.5-17.5); MEAN CORPUSCULAR HEMOGLOBIN 32.1 pg (27.0-33.0); MEAN CORPUSCULAR HGB CONC 31.9 g/dl (32.0-36.5); MEAN CORPUSCULAR VOLUME 100.5 fl (80.0-96.0); PLATELET COUNT, AUTOMATED 177 10^3/uL (150-450); RED BLOOD COUNT 3.65 10^6/uL (4.30-6.10)
[2019-02-11 05:52] LABS: WHITE BLOOD COUNT 48.7 10^3/uL (4.0-10.0)
[2019-02-11 05:59] LABS: INR 1.16; PROTHROMBIN TIME 14.5 SECONDS (11.8-14.0)
[2019-02-11 06:01] LABS: PARTIAL THROMBOPLASTIN TIME 81.4 SECONDS (25.0-38.4)
[2019-02-11 06:10] LABS: BLOOD UREA NITROGEN 22 MG/DL (7-18); CARBON DIOXIDE LEVEL 26 MEQ/L (21-32); CHLORIDE LEVEL 110 MEQ/L (98-107); CREATININE FOR GFR 1.06 MG/DL (0.70-1.30); GLOMERULAR FILTRATION RATE > 60.0 (>42); GLUCOSE, FASTING 93 MG/DL (70-100); MAGNESIUM LEVEL 1.8 MG/DL (1.8-2.4); PHOSPHORUS LEVEL 2.8 MG/DL (2.5-4.9); POTASSIUM SERUM 4.8 MEQ/L (3.5-5.1); SODIUM LEVEL 140 MEQ/L (136-145)
[2019-02-11] MEDS ORDERED: MAGNESIUM SULFATE 1 GM/100 ML D5W BAG (10MG/ML) (J3475) As Ordered ONE (07:59)
[2019-02-11 08:00] VITALS: BP 118/62
[2019-02-11] MEDS: DOCUSATE SODIUM 100 MG CAP PO SCH ×2 (08:07→20:42)
[2019-02-11] MEDS: ASPIRIN 81 MG ENTERIC TAB PO SCH ×2 (08:07→20:42)
[2019-02-11] MEDS: LISINOPRIL 10 MG TAB PO SCH (08:08)
[2019-02-11] MEDS ORDERED: MAG SULF 1GM/100ML (MAG RUN) 1 GM in IV 1 EA IV ONE (08:15)
[2019-02-11 12:00] VITALS: BP 144/67
[2019-02-11] MEDS ORDERED: SLF 3 ML SYR IV PRN (12:00)
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
[2019-02-11 16:00] VITALS: BP 138/66
[2019-02-11] MEDS: WARFARIN SOD 5 MG TAB PO SCH (17:23)
[2019-02-11] MEDS: ACETAMINOPHEN TAB 650MG DOSE (2X325MG) PO PRN (17:23)
[2019-02-11] MEDS: MIRALAX *UNIT DOSE* 17GM PACKET PO PRN (17:23)
[2019-02-11 20:00] VITALS: BP 115/60
[2019-02-12] VITALS: BP 144/75
[2019-02-12] MEDS: HEPARIN DRIP 25,000 UNITS in IV 1 EA IV SCH ×2 (00:21→19:40)
[2019-02-12 04:00] VITALS: BP 158/77
[2019-02-12] MEDS: SLF 3 ML SYR IV SCH ×6 (05:00→21:23)
[2019-02-12 05:58] LABS: HEMATOCRIT 37.6 % (42.0-52.0); HEMOGLOBIN 11.7 g/dl (13.5-17.5); MEAN CORPUSCULAR HEMOGLOBIN 31.2 pg (27.0-33.0); MEAN CORPUSCULAR HGB CONC 31.1 g/dl (32.0-36.5); MEAN CORPUSCULAR VOLUME 100.3 fl (80.0-96.0); PLATELET COUNT, AUTOMATED 193 10^3/uL (150-450); RED BLOOD COUNT 3.75 10^6/uL (4.30-6.10)
[2019-02-12 06:08] LABS: WHITE BLOOD COUNT 45.2 10^3/uL (4.0-10.0)
[2019-02-12 06:09] LABS: INR 1.34; PROTHROMBIN TIME 16.3 SECONDS (11.8-14.0)
[2019-02-12 06:11] LABS: PARTIAL THROMBOPLASTIN TIME 85.3 SECONDS (25.0-38.4)
[2019-02-12 06:31] LABS: BLOOD UREA NITROGEN 20 MG/DL (7-18); CARBON DIOXIDE LEVEL 29 MEQ/L (21-32); CHLORIDE LEVEL 106 MEQ/L (98-107); CREATININE FOR GFR 1.13 MG/DL (0.70-1.30); GLOMERULAR FILTRATION RATE > 60.0 (>42); GLUCOSE, FASTING 97 MG/DL (70-100); MAGNESIUM LEVEL 2.1 MG/DL (1.8-2.4); POTASSIUM SERUM 4.3 MEQ/L (3.5-5.1); SODIUM LEVEL 138 MEQ/L (136-145)
[2019-02-12 08:00] VITALS: BP 144/71
[2019-02-12] MEDS: ASPIRIN 81 MG ENTERIC TAB PO SCH ×2 (08:17→21:23)
[2019-02-12] MEDS: DOCUSATE SODIUM 100 MG CAP PO SCH ×2 (08:18→21:23)
[2019-02-12] MEDS: LISINOPRIL 10 MG TAB PO SCH (08:20)
[2019-02-12 12:00] VITALS: BP 140/75
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
[2019-02-12 16:00] VITALS: BP 140/67
[2019-02-12] MEDS: WARFARIN SOD 5 MG TAB PO SCH (16:11)
[2019-02-12] MEDS ORDERED: WARFARIN SOD 5 MG TAB PO ONE (17:00)
[2019-02-12 20:00] VITALS: BP 137/69
[2019-02-12] MEDS: ACETAMINOPHEN TAB 650MG DOSE (2X325MG) PO PRN (21:23)
[2019-02-13] VITALS: BP 153/76
[2019-02-13 04:00] VITALS: BP 131/75
[2019-02-13] MEDS: SLF 3 ML SYR IV SCH ×6 (04:35→22:00)
[2019-02-13 06:39] LABS: INR 1.57; PROTHROMBIN TIME 18.5 SECONDS (11.8-14.0)
[2019-02-13 07:03] LABS: PARTIAL THROMBOPLASTIN TIME 120.7 SECONDS (25.0-38.4)
[2019-02-13 07:20] LABS: BLOOD UREA NITROGEN 24 MG/DL (7-18); CALCIUM LEVEL 8.6 MG/DL (8.8-10.2); CARBON DIOXIDE LEVEL 27 MEQ/L (21-32); CHLORIDE LEVEL 107 MEQ/L (98-107); CREATININE FOR GFR 1.18 MG/DL (0.70-1.30); GLOMERULAR FILTRATION RATE > 60.0 (>42); GLUCOSE, FASTING 101 MG/DL (70-100); POTASSIUM SERUM 4.4 MEQ/L (3.5-5.1); SODIUM LEVEL 140 MEQ/L (136-145)
[2019-02-13 08:00] VITALS: BP 148/74
[2019-02-13 08:01] LABS: INR 1.5; PROTHROMBIN TIME 17.8 SECONDS (11.8-14.0)
[2019-02-13 08:03] LABS: PARTIAL THROMBOPLASTIN TIME 101.1 SECONDS (25.0-38.4)
[2019-02-13] MEDS: DOCUSATE SODIUM 100 MG CAP PO SCH ×2 (09:08→20:19)
[2019-02-13] MEDS: LISINOPRIL 10 MG TAB PO SCH (09:08)
[2019-02-13] MEDS: ASPIRIN 81 MG ENTERIC TAB PO SCH ×2 (09:08→20:19)
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
[2019-02-13] MEDS ORDERED: WARFARIN SOD 5 MG TAB PO ONE (11:00)
[2019-02-13 12:27] VITALS: BP 134/68
[2019-02-13] MEDS: CEPHALEXIN 500 MG CAP PO SCH ×2 (14:47→20:19)
[2019-02-13 15:22] LABS: INR 1.54; PROTHROMBIN TIME 18.2 SECONDS (11.8-14.0)
[2019-02-13 15:23] LABS: PARTIAL THROMBOPLASTIN TIME 58.8 SECONDS (25.0-38.4)
[2019-02-13 16:26] VITALS: BP 130/62
[2019-02-13] MEDS: ACETAMINOPHEN TAB 650MG DOSE (2X325MG) PO PRN (17:02)
[2019-02-13] MEDS: WARFARIN SOD 5 MG TAB PO SCH (17:03)
[2019-02-13] MEDS: HEPARIN DRIP 25,000 UNITS in IV 1 EA IV SCH (19:05)
[2019-02-13 20:04] VITALS: BP 117/62
[2019-02-13 21:55] LABS: INR 1.74; PROTHROMBIN TIME 20.1 SECONDS (11.8-14.0)
[2019-02-13 21:58] LABS: PARTIAL THROMBOPLASTIN TIME 105.4 SECONDS (25.0-38.4)
[2019-02-14] VITALS: BP 125/72
[2019-02-14 04:00] VITALS: BP 131/79
[2019-02-14 04:13] LABS: INR 1.94
[2019-02-14 04:19] LABS: BLOOD UREA NITROGEN 23 MG/DL (7-18); CALCIUM LEVEL 9.1 MG/DL (8.8-10.2); CARBON DIOXIDE LEVEL 26 MEQ/L (21-32); CHLORIDE LEVEL 109 MEQ/L (98-107); CREATININE FOR GFR 1.14 MG/DL (0.70-1.30); GLOMERULAR FILTRATION RATE > 60.0 (>42); GLUCOSE, FASTING 101 MG/DL (70-100); PHOSPHORUS LEVEL 3.5 MG/DL (2.5-4.9); POTASSIUM SERUM 4.6 MEQ/L (3.5-5.1); SODIUM LEVEL 140 MEQ/L (136-145)
[2019-02-14] MEDS: MIRALAX *UNIT DOSE* 17GM PACKET PO PRN (04:19)
[2019-02-14] MEDS: ACETAMINOPHEN TAB 650MG DOSE (2X325MG) PO PRN (04:20)
[2019-02-14] MEDS: SLF 3 ML SYR IV SCH ×4 (04:25→14:05)
[2019-02-14 05:10] LABS: PARTIAL THROMBOPLASTIN TIME 232.9 SECONDS (25.0-38.4)
[2019-02-14 08:00] VITALS: BP 134/67
[2019-02-14] MEDS: ASPIRIN 81 MG ENTERIC TAB PO SCH (08:42)
[2019-02-14 08:43] VITALS: BP 134/67
[2019-02-14] MEDS: DOCUSATE SODIUM 100 MG CAP PO SCH (08:43)
[2019-02-14] MEDS: CEPHALEXIN 500 MG CAP PO SCH (08:43)
[2019-02-14] MEDS: LISINOPRIL 10 MG TAB PO SCH (08:43)
[2019-02-14] MEDS ORDERED: CEPH500C PO (11:33)
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
[2019-02-14 12:00] VITALS: BP 137/73
[2019-02-14] MEDS ORDERED: WARF-22 PO (15:46)
== END 2019-02-14 15:23 | disposition home or self-care (01) | DRG 948 ==
LOC: M ED 21:41 → M ED INP 02-09 01:38 → OBSVTOIN 02-09 01:38 → M PCU 02-09 03:25
PROVIDERS: ADMIT Internal Medicine; ATTEND Internal Medicine
DX: R41.82 Altered mental status, unspecified (principal); C91.90 Lymphoid leukemia, unspecified not having achieved remission; I82.401 Acute embolism and thrombosis of unspecified deep veins of right lower extremity; D68.59 Other primary thrombophilia; L03.115 Cellulitis of right lower limb; I10 Essential (primary) hypertension; Z86.711 Personal history of pulmonary embolism; Z95.828 Presence of other vascular implants and grafts; D53.9 Nutritional anemia, unspecified; T45.515A Adverse effect of anticoagulants, initial encounter; Z79.82 Long term (current) use of aspirin; Z79.01 Long term (current) use of anticoagulants; Z79.899 Other long term (current) drug therapy; Z88.8 Allergy status to other drugs, medicaments and biological substances

== ENCOUNTER → 2019-03-04 | Outpatient (REF) | payer MEDICARE ==
[~2019-03-04] MED LIST changes: +CEPH500C PO; +CHOL50002 PO; +ENOX100I3 SC; +WARF-22 PO
[2019-03-04 14:33] LABS: HEMATOCRIT 41.4 % (42.0-52.0); MEAN CORPUSCULAR HEMOGLOBIN 32.2 pg (27.0-33.0); MEAN CORPUSCULAR HGB CONC 31.4 g/dl (32.0-36.5); MEAN CORPUSCULAR VOLUME 102.5 fl (80.0-96.0); PLATELET COUNT, AUTOMATED 155 10^3/uL (150-450); RED BLOOD COUNT 4.04 10^6/uL (4.30-6.10)
[2019-03-04 14:39] LABS: ALBUMIN 3.8 GM/DL (3.2-5.2); ALT/SGPT 27 U/L (12-78); BILIRUBIN,TOTAL 0.4 MG/DL (0.2-1.0); BLOOD UREA NITROGEN 18 MG/DL (7-18); CALCIUM LEVEL 8.9 MG/DL (8.8-10.2); CARBON DIOXIDE LEVEL 29 MEQ/L (21-32); CHLORIDE LEVEL 106 MEQ/L (98-107); CHOLESTEROL LEVEL 268 MG/DL (<200); CHOLESTEROL RISK RATIO 6.536 (<5); CREATININE FOR GFR 1.23 MG/DL (0.70-1.30); GLOMERULAR FILTRATION RATE > 60.0 (>42); GLUCOSE, FASTING 88 MG/DL (70-100); HDL CHOLESTEROL 41 MG/DL (>40); LDL CHOLESTEROL 185 MG/DL (<100); NON-HDL-C 227 MG/DL; POTASSIUM SERUM 4.8 MEQ/L (3.5-5.1); SODIUM LEVEL 140 MEQ/L (136-145); TOTAL PROTEIN 6.8 GM/DL (6.4-8.2); TRIGLYCERIDES LEVEL 211 MG/DL (<150)
[2019-03-04 14:50] LABS: WHITE BLOOD COUNT 42.7 10^3/uL (4.0-10.0)
[2019-03-04 15:28] LABS: ATYPICAL LYMPH 38 % (0-5); EOSINOPHILS 3 % (0-3); LYMPHOCYTES 39 % (16-44); MONOCYTES 2 % (0-5); NEUTROPHILS 18 % (28-66); SMUDGE CELLS 2+
[2019-03-04 15:29] LABS: PLATELET ESTIMATE NORMAL (NORMAL)
[2019-03-04 15:30] LABS: ANISOCYTOSIS 1+; OVALOCYTES 1+; POIKILOCYTOSIS 1+
== END ==
LOC: M SFHCSACK 10:05
PROVIDERS: ATTEND Physician Assistant
DX: E55.9 Vitamin D deficiency, unspecified (principal); E78.2 Mixed hyperlipidemia; C91.10 Chronic lymphocytic leukemia of B-cell type not having achieved remission; Z12.5 Encounter for screening for malignant neoplasm of prostate
CPT/HCPCS: 36415; 80053; 80061; 82306; 85025; G0103

== ENCOUNTER → 2019-03-17 | Outpatient (REF) | payer MEDICARE ==
[~2019-03-17] MED LIST changes: +WARF-18 PO
[2019-03-17 13:41] LABS: APPEARANCE, URINE CLEAR (CLEAR); BACTERIA, URINE AUTO NEGATIVE (NEGATIVE); BILIRUBIN, URINE AUTO NEGATIVE (NEGATIVE); BLOOD, URINE BLOOD 1+ (NEGATIVE); COLOR, URINE YELLOW (YELLOW); GLUCOSE, URINE (UA) AUTO NEGATIVE (NEGATIVE); KETONE, URINE AUTO NEGATIVE (NEGATIVE); LEUKOCYTE ESTERASE, URINE AUTO NEGATIVE (NEGATIVE); MUCUS, URINE SMALL (NEGATIVE); NITRITE, URINE AUTO NEGATIVE (NEGATIVE); PROTEIN, URINE AUTO NEGATIVE (NEGATIVE); RBC, URINE AUTO 1 /HPF (0-3); SPECIFIC GRAVITY URINE AUTO 1.011 (1.002-1.035); SQUAMOUS EPITHELIAL CELL UR AU 0 /HPF (0-6); UROBILINOGEN, URINE AUTO 0.2 mg/dL (0.0-2.0); WBC, URINE AUTO 0 /HPF (0-3)
== END ==
LOC: M SMT 12:54
PROVIDERS: ATTEND Nurse Practitioner Women's Health
DX: R97.20 Elevated prostate specific antigen [PSA] (principal)
CPT/HCPCS: 81001; 87086; G0463